=== PATIENT | female | born 1970 | race Caucasian/White ===

== ENCOUNTER 2019-07-10 | Outpatient (RCR) | payer OTHER, SELFPAY | END 2019-08-09 | disposition home or self-care (01) | LOC: GILAB | PROVIDERS: Family Provider Family Medicine; PCP Family Medicine; Visit Provider Family Medicine | DX: D50.9 Iron deficiency anemia, unspecified (principal) | CPT/HCPCS: J1756; J7050 ==

== ENCOUNTER 2019-07-12 07:31 | Outpatient (CLI) | payer OTHER, SELFPAY ==
--- NOTE | 2019-07-12 08:55 | PC.NURSE ---
UPON ARRIVAL TO [facility] FOR INFUSION, PT STATED THAT HER ARM BECAME SWOLLEN ON THE WAY HOME AFTER HER LAST INFUSION. SHE SAID THAT IT WAS SO SWOLLEN SHE COULD NOT CLOTH PACKER HER CUP. THE SWELLING WENT DOWN IN 3 HOURS AFTER SHE SOAKED IN A TUB. SHE SAID SHE WAS NOT SURE THAT SHE WANTED TO DO THE INFUSION. I CONTACTED DR CABRERA AND HE GAVE ME ORDERS TO GIVE BENADRYL BEFORE INFUSION. WHEN I OFFERED BENADRYL TO PT SHE ROLLED HER EYES AND DECLINED. SHE STATED THE SWELLING DIDN'T BOTHER HER THAT BAD BUT SHE DIDN'T WANT TO FEEL BAD FOR A COUPLE OF DAYS LIKE SHE DID AFTER LAST INFUSION. PT AFTER MUCH DISCUSSION ABOUT HER NEED FOR THE MEDICATION, PT REFUSED INFUSION. DR CABRERA'S OFFICE NOTIFIED
== END 2019-07-12 07:32 | disposition home or self-care (01) ==
LOC: GILAB 07:35
PROVIDERS: Family Provider Family Medicine; PCP Family Medicine; Visit Provider Family Medicine
DX: D50.9 Iron deficiency anemia, unspecified (principal)